=== PATIENT | male | born 1970 | race Caucasian/White ===

== ENCOUNTER → 2022-09-28 10:53 | Outpatient (BNVA) | payer OTHER, SELFPAY | PROVIDERS: Family Provider Nurse Practitioner Family; PCP Nurse Practitioner Family; Visit Provider Nurse Practitioner | DX: J02.9 Acute pharyngitis, unspecified (principal) | CPT/HCPCS: 87880 ==

== ENCOUNTER → 2023-03-20 10:23 | Outpatient (BNVA) | payer OTHER, SELFPAY | PROVIDERS: Family Provider Nurse Practitioner Family; PCP Nurse Practitioner Family; Visit Provider Nurse Practitioner Family | DX: I82.409 Acute embolism and thrombosis of unspecified deep veins of unspecified lower extremity (principal); M10.9 Gout, unspecified; R53.83 Other fatigue; Z79.899 Other long term (current) drug therapy; J32.9 Chronic sinusitis, unspecified; Z86.711 Personal history of pulmonary embolism | CPT/HCPCS: 80053; 82040; 82306; 82607; 84270; 84403; 84439; 84443; 84550; 85025; 85651; 86140 ==

== ENCOUNTER 2023-05-17 13:23 | Outpatient (CLI) | payer OTHER, SELFPAY ==
--- NOTE | 2023-05-17 13:36 | CT_ITS ---
WS: [id number] CTA THORACIC TECHNIQUE: Contrast enhanced CTA of the thoracic aorta with coronal and sagittal reformatted images a nd maximum intensity projection (MIP) images. CLINICAL INFORMATION: PRECORDIAL PAIN/?THORACIC ANEURYSM COMPARISON: None. DLP: 638.[address] scans at [facility] use at least one of these dose optimization techniques: automated e xposure control; mA and/or kV adjustment per patient size (includes targeted exams where dose is matc hed to clinical indication); or iterative reconstruction. FINDINGS: Ascending thoracic aorta measures 3.5 cm in maximum dimension. Normal caliber aortic arch and descend ing thoracic aorta. No evidence of dissection. Celiac and SMA are patent. Proximal main pulmonary arteries are normal. Normal segmental and subsegmental pulmonary arteries. No evidence of pulmonary embolus. No mediastinal or hilar lymphadenopathy. No axillary lymphadenopathy. Adrenal glands are normal. Small esophageal hiatal hernia. Mild thoracic kyphosis. Mild thoracic curv e. Lungs are well aerated. No acute pulmonary infiltrates. No focal pneumonia or pleural fluid. Sligh t subsegmental atelectasis in the lung bases. IMPRESSION: 1. No evidence of aortic dissection. 2. Slightly prominent ascending thoracic aorta measuring 3.5 cm in maximum dimension. 3. No evidence of pulmonary embolus. 4. Lungs are well aerated. No acute pulmonary infiltrates. 5. Small esophageal hiatal hernia.
[2023-05-17] MEDS: iohexol 350 mg/mL 500 mL Btl (per mL) IV (13:59)
== END 2023-05-17 13:24 | disposition home or self-care (01) ==
LOC: RAD 13:23
PROVIDERS: Family Provider Nurse Practitioner Family; PCP Nurse Practitioner Family; Visit Provider Nurse Practitioner Family
DX: R07.2 Precordial pain (principal); K44.9 Diaphragmatic hernia without obstruction or gangrene
CPT/HCPCS: 71275; Q9967